=== PATIENT | female | born 1990 | race Caucasian/White ===

== ENCOUNTER 2017-05-03 20:17 | Emergency (ER) | payer MEDICAID, OTHER ==
[2017-05-03 20:57] VITALS: BP 136/94
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
--- NOTE | 2017-05-08 12:50 | CR ---
Nasal bone: Three views of the nasal bone were obtained. Lucent lines are identified within the distal cartilage of the nasal bone which are felt to be normal variant. No nasal bone fracture is identified. Visualized sinuses are clear. Impression: 1. Nothing acute is appreciated on three-view nasal bone study. Diagnostic code #1
== END 2017-05-03 22:24 | disposition home or self-care (01) ==
LOC: JD.ED 20:17
DX: S09.92XA Unspecified injury of nose, initial encounter (principal); X58.XXXA Exposure to other specified factors, initial encounter
CPT/HCPCS: 70160; 70160-26; 99283

== ENCOUNTER 2018-08-13 20:12 | Emergency (ER) | payer MEDICAID ==
[2018-08-13 20:24] VITALS: BP 136/84
--- NOTE | 2018-08-13 20:34 | EDM.PDOC ---
ED HPI GENERAL MEDICAL PROBLEM - General Chief Complaint: ENT Problem Stated Complaint: sore throat Time Seen by Provider: 08/13/18 20:23 - History of Present Illness INITIAL COMMENTS - FREE TEXT/NARRATIVE: 27-year-old female presents emergency room with sore throat. The sore throat started earlier today progressively getting worse she's not aware of any fevers or chills but she is having some difficulty eating and drinking the patient is 15 weeks and has had significant issues with hyperemesis gravidarum. She's not aware of any fevers chills. She is not achy all over does not have cough. Throat Pain Score (Numeric/FACES): 7 - Related Data Allergies Allergy/AdvReac Type Severity Reaction Status Date / Time No Known Allergies Allergy Verified 08/13/18 20:23 Home Meds: Home Meds Ondansetron [Zofran] 4 mg PO Q6H PRN 08/13/18 [History] Vits #93/Iron Fum/FA [ Formula Tablet] 1 tab PO DAILY 08/13/18 [History] Past Medical History - Past Health History Medical/Surgical History: Denies Medical/Surgical History ED ROS ENT - Review of Systems Review Of Systems: See Below Constitutional: Denies: Fever, Chills HEENT: Reports: Other (Sore throat) Respiratory: Denies: Shortness of Breath, Cough, Sputum Cardiovascular: Reports: No Symptoms Endocrine: Reports: No Symptoms GI/Abdominal: Reports: Nausea. Denies: Abdominal Pain, Constipation, Diarrhea : Reports: No Symptoms Musculoskeletal: Reports: No Symptoms Skin: Reports: No Symptoms Neurological: Reports: No Symptoms ED EXAM, ENT - Physical Exam Exam: See Below Exam Limited By: No Limitations General Appearance: Alert, No Apparent Distress Eye Exam: Bilateral Eye: Normal Inspection Ears: Normal External Exam, Normal Canal, Hearing Grossly Normal, Normal TMs Nose: Normal Inspection, Normal Mucousa Mouth/Throat: Normal Inspection, Normal Gums, Normal Lips, Other (Posterior pharynx is mildly erythematous no exudate noted) Head: Atraumatic, Normocephalic Neck: Normal Inspection, Supple, Non-Tender, Full Range of Motion. No: Lymphadenopathy (L), Lymphadenopathy (R) Respiratory/Chest: No Respiratory Distress, Lungs Clear, Normal Breath Sounds Cardiovascular: Regular Rate, Rhythm, No Edema, No Murmur GI/Abdominal: Normal Bowel Sounds, Non-Tender, No Organomegaly, No Distention, Other (Uterine fundus is consistent with dates heart tones are audible 165 bpm). No: Guarding, Rigid, Rebound, Tender Course - Vital Signs Last Recorded V/S: Last Vital Signs Temp 36.9 C 08/13/18 20:21 Pulse 106 H 08/13/18 20:21 Resp 16 08/13/18 20:21 BP 136/84 08/13/18 20:21 Pulse Ox 100 08/13/18 20:21 - Orders/Labs/Meds Orders: Active Orders 24 hr Category Date Time Status CULTURE STREP A CONFIRMATION [RM] Stat Lab 08/13/18 20:21 Results CULTURE THROAT [RM] Stat Lab 08/13/18 21:08 Ordered STREP SCRN A RAPID W CULT CONF [RM] Stat Lab 08/13/18 20:21 Results - Re-Assessments/Exams Free Text/Narrative Re-Assessment/Exam: 08/13/18 21:25 Rapid strep negative confirmatory culture pending. Influenza screen for a and B is both negative with talking or the patient sounds like there is a URI going through her household maybe she's at the early steps of this I discussed patient 's case with Dr. Pollack as the patient was wondering if she could use Tylenol Cold and flu or Robitussin he thought both of those be okay but to check with Dr. Tidwell her regular OB tomorrow Departure - Departure Time of Disposition: 21:28 Disposition: Home, Self-Care 01 Clinical Impression: Pharyngitis - Discharge Information Referrals: PCP,None [Primary Care Provider] - Forms: ED Department Discharge Additional Instructions: Return to the emergency room with any questions problems worsening symptoms. Call Dr. Tidwell tomorrow if needed. Confirmatory culture for strep throat is pending at this point. - My Orders Last 24 Hours: My Active Orders 08/13/18 20:21 CULTURE STREP A CONFIRMATION [RM] Stat STREP SCRN A RAPID W CULT CONF [RM] Stat 08/13/18 21:08 CULTURE THROAT [RM] Stat - Assessment/Plan Last 24 Hours: My Active Orders 08/13/18 20:21 CULTURE STREP A CONFIRMATION [RM] Stat STREP SCRN A RAPID W CULT CONF [RM] Stat 08/13/18 21:08 CULTURE THROAT [RM] Stat
== END 2018-08-13 21:35 | disposition home or self-care (01) ==
LOC: JD.ED 20:12
DX: O99.512 Diseases of the respiratory system complicating pregnancy, second trimester (principal); J02.9 Acute pharyngitis, unspecified; Z3A.15 15 weeks gestation of pregnancy
CPT/HCPCS: 87081; 87430; 87804; 99282; 99283

== ENCOUNTER 2018-08-29 19:08 | Emergency (ER) | payer MEDICAID ==
[2018-08-29 19:16] VITALS: BP 130/76
--- NOTE | 2018-08-29 19:44 | EDM.PDOC ---
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 She landed on her buttocks. She then developed some spotting this morning and cramping. She still has some cramps. She is at 18 weeks gestation with a LNMP of mid April. She is seeing Dr Tidwell. She has no discharge. She has some mild low back pain after the fall. She has no numbness or weakness. She did not hurt her head or neck. Onset: Sudden Duration: Day(s): (Last night) Location: Reports: Abdomen, Pelvis Quality: Reports: Other (Cramping) Severity: Mild Improves with: Reports: None Worsens with: Reports: None Associated Symptoms: Reports: No Other Symptoms Lower Abdomen Pain Score (Numeric/FACES): 4 - Related Data Allergies Allergy/AdvReac Type Severity Reaction Status Date / Time No Known Allergies Allergy Verified 08/29/18 19:16 Home Meds: Home Meds Ondansetron [Zofran] 4 mg PO Q6H PRN 08/13/18 [History] Vits #93/Iron Fum/FA [ Formula Tablet] 1 tab PO DAILY 08/13/18 [History] Past Medical History - Past Health History Medical/Surgical History: Denies Medical/Surgical History Cardiovascular History: Reports: Other (See Below) Other Cardiovascular History: aortic stenosis, pulmonary valve disorder Social & Family History - Tobacco Use Smoking Status *Q: Current Every Day Smoker Years of Tobacco use: 10 Packs/Tins Daily: 0.2 - Caffeine Use Caffeine Use: Reports: Coffee - Recreational Drug Use Recreational Drug Use: No ED ROS GENERAL - Review of Systems Review Of Systems: See Below Constitutional: Reports: No Symptoms HEENT: Reports: No Symptoms Respiratory: Reports: No Symptoms Cardiovascular: Reports: No Symptoms Endocrine: Reports: No Symptoms GI/Abdominal: Reports: Abdominal Pain. Denies: Diarrhea, Nausea, Vomiting : Reports: No Symptoms Musculoskeletal: Reports: Back Pain (Low). Denies: Neck Pain ED EXAM - Physical Exam Exam: See Below Exam Limited By: No Limitations General Appearance: Alert, No Apparent Distress Ears: Normal External Exam Nose: Normal Inspection Head: Atraumatic, Normocephalic Neck: Normal Inspection Respiratory/Chest: No Respiratory Distress, Lungs Clear, Normal Breath Sounds Cardiovascular: Regular Rate, Rhythm, No Edema, No Murmur GI/Abdominal Exam: Soft, Non-Tender, Other (Uterus felt to just below the umbilicus with no tenderness) Course - Vital Signs Last Recorded V/S: Last Vital Signs Temp 97.1 F 08/29/18 19:14 Pulse 100 08/29/18 19:14 Resp 18 08/29/18 19:14 BP 130/76 08/29/18 19:14 Pulse Ox 99 08/29/18 19:14 - Orders/Labs/Meds Orders: Active Orders 24 hr Category Date Time Status RHOGAM, [RHIG WORKUP, ] [BBK] Stat Lab 08/29/18 21:11 Ordered Labs: Laboratory Tests 08/29/18 08/29/18 08/29/18 Range/Units 19:50 19:50 19:50 WBC 8.88 (3.98-10.04) K/mm3 RBC 4.50 (3.98-5.22) M/mm3 Hgb 12.7 (11.2-15.7) gm/L Hct 38.1 (34.1-44.9) % MCV 84.7 (79.4-94.8) fl MCH 28.2 (25.6-32.2) pg MCHC 33.3 (32.2-35.5) g/dl RDW Std Deviation 42.4 (36.4-46.3) fL Plt Count 228 (182-369) K/mm3 MPV 10.1 (9.4-12.3) fl Neut % (Auto) 70.2 (34.0-71.1) % Lymph % (Auto) 19.8 (19.3-51.7) % Centre % (Auto) 7.7 (4.7-12.5) % Eos % (Auto) 1.8 (0.7-5.8) Baso % (Auto) 0.2 (0.1-1.2) % Neut # (Auto) 6.23 H (1.56-6.13) K/mm3 Lymph # (Auto) 1.76 (1.18-3.74) K/mm3 Centre # (Auto) 0.68 H (0.24-0.36) K/mm3 Eos # (Auto) 0.16 (0.04-0.36) K/mm3 Baso # (Auto) 0.02 (0.01-0.08) K/mm3 HCG, Quant 02742.0 mIU/mL Blood Type O NEGATIVE - Re-Assessments/Exams Free Text/Narrative Re-Assessment/Exam: 08/29/18 19:45 I ordered lab work and an US. 08/29/18 21:25 Her CBC looks good. Her HCG was 48,400. Her US shows single intrauterine fetus 15 weeks 6 days. No complicating process is seen by US at this time. No etiology is seen for the patient's spotting. She is O negative so I have ordered some rhogam. Departure - Departure Time of Disposition: 21:30 Disposition: Home, Self-Care 01 Condition: Good Clinical Impression: Spotting affecting in second trimester, Cramping affecting , antepartum Fall Qualifiers: Encounter type: initial encounter Qualified Code(s): W19.XXXA - Unspecified fall, initial encounter Qualifiers: Weeks of gestation: 15 weeks Qualified Code(s): Z3A.15 - 15 weeks gestation of - Discharge Information *PRESCRIPTION DRUG MONITORING PROGRAM REVIEWED*: No *COPY OF PRESCRIPTION DRUG MONITORING REPORT IN PATIENT HARSHAD: No Referrals: Jack Tidwell MD [Primary Care Provider] - 1 Week Forms: ED Department Discharge Additional Instructions: Drink plenty of fluids. Take tylenol as needed for pain. Follow up with Dr Tidwell in 1 week. Please return if you have more bleeding or cramping. - My Orders Last 24 Hours: My Active Orders 08/29/18 21:11 RHOGAM, [RHIG WORKUP, ] [BBK] Stat - Assessment/Plan Last 24 Hours: My Active Orders 08/29/18 21:11 RHOGAM, [RHIG WORKUP, ] [BBK] Stat
--- NOTE | 2018-08-29 20:55 | US ---
Limited obstetrical ultrasound: Multiple real-time images were obtained transabdominally. Comparison: Previous obstetrical ultrasound of 06/19/18 is available. Dates: Current ultrasound: [facility] 02/14/19, gestational age 15 weeks 6 days presentation: Mobile Placenta: Posterior with no findings of placenta previa or abruption Amniotic fluid: Normal in amount Measurements: BPD: 3.14 cm - 15 weeks 6 days Head circumference: 11.59 cm - 15 weeks 5 days Abdominal circumference: 9.67 cm - 15 weeks 6 days Femur length: 1.84 cm - 15 weeks 4 days Estimated weight: 130 g (0 lbs. 5 oz.), estimated weight at 26th percentile for age by current ultrasound Heart rate: 161 BPM Cervical length: 3.3 cm Impression: 1. Single intrauterine fetus. Dates as noted above. Fetus is mobile in position. 2. No complicating process is seen by ultrasound at this time. No etiology is seen for the patient's spotting. Diagnostic code #1
== END 2018-08-29 22:20 | disposition home or self-care (01) ==
LOC: JD.ED 19:08
DX: O26.852 Spotting complicating pregnancy, second trimester (principal); O99.89 Other specified diseases and conditions complicating pregnancy, childbirth and the puerperium; R10.30 Lower abdominal pain, unspecified; M54.5 Low back pain; O99.332 Smoking (tobacco) complicating pregnancy, second trimester; F17.210 Nicotine dependence, cigarettes, uncomplicated; Z3A.15 15 weeks gestation of pregnancy; W01.0XXA Fall on same level from slipping, tripping and stumbling without subsequent striking against object, initial encounter; Y99.0 Civilian activity done for income or pay
CPT/HCPCS: 36415; 76815; 84702; 85025; 86850; 86900; 86901; 99284; J2790

== ENCOUNTER 2019-04-28 09:22 | Emergency (ER) | payer MEDICAID ==
[2019-04-28 09:29] VITALS: BP 137/84; PULSE 94
[2019-04-28] MEDS ORDERED: Sodium Chloride 0.9% 10 ML Syringe FLUSH PRN (09:39)
[2019-04-28] MEDS ORDERED: Ondansetron 4 MG/2 ML SDV IVPUSH ONE (09:39)
[2019-04-28] MEDS ORDERED: Ketorolac 30 MG/ML SDV IVPUSH ONE (09:40)
--- NOTE | 2019-04-28 09:44 | EDM.PDOC ---
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 The pain radiates down to the suprapubic area. She says this started a couple days ago and it comes and goes. She has nausea but no vomiting. She has no fever, chills, cough, congestion, runny nosed, chest pain, or shortness of breath. She has no dysuria or hematuria. She had a baby a couple months ago and a tubal ligation last month. Onset: Gradual Duration: Day(s): Location: Reports: Abdomen Quality: Reports: Sharp Severity: Moderate Improves with: Reports: None Worsens with: Reports: None Associated Symptoms: Reports: Nausea/Vomiting. 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: , Other (See Below) Other MOTOR REBUILDER History: tubes tied Psychiatric History: Reports: Depression - Infectious Disease History Infectious Disease History: Reports: MRSA Other Infectious Disease History: mrsa history 10 years ago-boils in armpits Social & Family History - Family History Family Medical History: Noncontributory - Tobacco Use Smoking Status *Q: Current Every Day Smoker Years of Tobacco use: 11 Packs/Tins Daily: 0.5 - Caffeine Use Caffeine Use: Reports: None - Recreational Drug Use Recreational Drug Use: No ED ROS GENERAL - Review of Systems Review Of Systems: See Below Constitutional: Reports: No Symptoms HEENT: Reports: No Symptoms Respiratory: Reports: No Symptoms Cardiovascular: Reports: No Symptoms Endocrine: Reports: No Symptoms GI/Abdominal: Reports: Abdominal Pain, Nausea. Denies: Diarrhea, Vomiting : Reports: No Symptoms Musculoskeletal: Reports: No Symptoms Skin: Reports: No Symptoms ED EXAM, GI/ABD - Physical Exam Exam: See Below Exam Limited By: No Limitations General Appearance: Alert, No Apparent Distress Ears: Normal External Exam Nose: Normal Inspection Head: Atraumatic, Normocephalic Neck: Normal Inspection Respiratory/Chest: No Respiratory Distress, Lungs Clear, Normal Breath Sounds Cardiovascular: Regular Rate, Rhythm, No Edema, No Murmur GI/Abdominal Exam: Soft, No Organomegaly, No Mass, Tender (Moderate tenderness to the left lower abdomen) Extremities: Normal Inspection Course - Vital Signs Last Recorded V/S: Last Vital Signs Temp 97.5 F 04/28/19 09:28 Pulse 94 04/28/19 09:28 Resp 15 04/28/19 09:28 BP 137/84 04/28/19 09:28 Pulse Ox 98 04/28/19 09:28 - Orders/Labs/Meds Orders: Active Orders 24 hr Category Date Time Status Peripheral IV Care [RC] . DIRECTED Care 04/28/19 09:40 Active CBC WITH AUTO DIFF [HEME] Stat Lab 04/28/19 10:00 Results Sodium Chloride 0.9% [Normal Saline] 1,000 ml Med 04/28/19 09:45 Active IV ASDIRECTED Sodium Chloride 0.9% [Saline Flush] Med 04/28/19 09:39 Active 10 ml FLUSH ASDIRECTED PRN ED Antiemetic Medication Reflex [OM.PC] Stat Oth 04/28/19 09:39 Ordered Peripheral IV Insertion Adult [OM.PC] Stat Oth 04/28/19 09:39 Ordered Medication Orders Sodium Chloride (Normal Saline) 1,000 mls @ 125 mls/hr IV ASDIRECTED GABBY Last Admin: 04/28/19 10:04 Dose: 125 mls/hr Sodium Chloride (Saline Flush) 10 ml FLUSH ASDIRECTED PRN PRN Reason: Keep Vein Open Last Admin: 04/28/19 10:05 Dose: 10 ml Labs: Laboratory Tests 04/28/19 04/28/19 04/28/19 Range/Units 10:00 10:00 10:00 WBC 4.67 (3.98-10.04) K/mm3 RBC 4.79 (3.98-5.22) M/mm3 Hgb 10.9 L (11.2-15.7) gm/dl Hct 35.9 (34.1-44.9) % MCV 74.9 L D (79.4-94.8) fl MCH 22.8 L (25.6-32.2) pg MCHC 30.4 L (32.2-35.5) g/dl RDW Std Deviation 39.0 (36.4-46.3) fL Plt Count 259 D (182-369) K/mm3 MPV 10.4 (9.4-12.3) fl Neut % (Auto) 54.9 (34.0-71.1) % Lymph % (Auto) 32.1 (19.3-51.7) % [place] % (Auto) 7.5 (4.7-12.5) % Eos % (Auto) 4.9 (0.7-5.8) Baso % (Auto) 0.6 (0.1-1.2) % Neut # (Auto) 2.56 (1.56-6.13) K/mm3 Lymph # (Auto) 1.50 (1.18-3.74) K/mm3 [place] # (Auto) 0.35 (0.24-0.36) K/mm3 Eos # (Auto) 0.23 (0.04-0.36) K/mm3 Baso # (Auto) 0.03 (0.01-0.08) K/mm3 Sodium 139 (136-145) mEq/L Potassium 3.8 (3.5-5.1) mEq/L Chloride 106 (98-107) mEq/L Carbon Dioxide 26 (21-32) mEq/L Anion Gap 10.8 (5-15) BUN 11 (7-18) mg/dL Creatinine 0.9 (0.55-1.02) mg/dL Est Cr Clr Drug Dosing 80.36 mL/min Estimated GFR (MDRD) > 60 (>60) mL/min BUN/Creatinine Ratio 12.2 L (14-18) Glucose 88 (74-106) mg/dL Calcium 9.1 (8.5-10.1) mg/dL Total Bilirubin 0.3 (0.2-1.0) mg/dL AST 12 L (15-37) U/L ALT 33 (14-59) U/L Alkaline Phosphatase 85 (46-116) U/L Total Protein 7.0 (6.4-8.2) g/dl Albumin 3.8 (3.4-5.0) g/dl Globulin 3.2 gm/dL Albumin/Globulin Ratio 1.2 (1-2) Lipase 60 L (73-393) U/L HCG, Qual Negative (NEGATIVE) Urine Color (Yellow) Urine Appearance (Clear) Urine pH (5.0-8.0) Ur Specific [place] (1.005-1.030) Urine Protein (Negative) Urine Glucose (UA) (Negative) Urine Ketones (Negative) Urine Occult Blood (Negative) Urine Nitrite (Negative) Urine Bilirubin (Negative) Urine Urobilinogen (0.2-1.0) Ur Leukocyte Esterase (Negative) Urine RBC (0-5) /hpf Urine WBC (0-5) /hpf Ur Epithelial Cells (0-5) /hpf Urine Bacteria (FEW) /hpf Urine Mucus (FEW) /hpf 04/28/19 Range/Units 11:05 WBC (3.98-10.04) K/mm3 RBC (3.98-5.22) M/mm3 Hgb (11.2-15.7) gm/dl Hct (34.1-44.9) % MCV (79.4-94.8) fl MCH (25.6-32.2) pg MCHC (32.2-35.5) g/dl RDW Std Deviation (36.4-46.3) fL Plt Count (182-369) K/mm3 MPV (9.4-12.3) fl Neut % (Auto) (34.0-71.1) % Lymph % (Auto) (19.3-51.7) % [place] % (Auto) (4.7-12.5) % Eos % (Auto) (0.7-5.8) Baso % (Auto) (0.1-1.2) % Neut # (Auto) (1.56-6.13) K/mm3 Lymph # (Auto) (1.18-3.74) K/mm3 [place] # (Auto) (0.24-0.36) K/mm3 Eos # (Auto) (0.04-0.36) K/mm3 Baso # (Auto) (0.01-0.08) K/mm3 Sodium (136-145) mEq/L Potassium (3.5-5.1) mEq/L Chloride (98-107) mEq/L Carbon Dioxide (21-32) mEq/L Anion Gap (5-15) BUN (7-18) mg/dL Creatinine (0.55-1.02) mg/dL Est Cr Clr Drug Dosing mL/min Estimated GFR (MDRD) (>60) mL/min BUN/Creatinine Ratio (14-18) Glucose (74-106) mg/dL Calcium (8.5-10.1) mg/dL Total Bilirubin (0.2-1.0) mg/dL AST (15-37) U/L ALT (14-59) U/L Alkaline Phosphatase (46-116) U/L Total Protein (6.4-8.2) g/dl Albumin (3.4-5.0) g/dl Globulin gm/dL Albumin/Globulin Ratio (1-2) Lipase (73-393) U/L HCG, Qual (NEGATIVE) Urine Color Yellow (Yellow) Urine Appearance Clear (Clear) Urine pH 5.5 (5.0-8.0) Ur Specific [place] 1.020 (1.005-1.030) Urine Protein Negative (Negative) Urine Glucose (UA) Negative (Negative) Urine Ketones Negative (Negative) Urine Occult Blood Negative (Negative) Urine Nitrite Negative (Negative) Urine Bilirubin Negative (Negative) Urine Urobilinogen 0.2 (0.2-1.0) Ur Leukocyte Esterase Negative (Negative) Urine RBC 0-5 (0-5) /hpf Urine WBC 0-5 (0-5) /hpf Ur Epithelial Cells 10-20 H (0-5) /hpf Urine Bacteria Few (FEW) /hpf Urine Mucus Not seen (FEW) /hpf Meds: Medications Generic Name Dose Route Start Last Admin Trade Name Freq PRN Reason Stop Dose Admin Sodium Chloride 1,000 mls @ 125 mls/hr 04/28/19 09:45 04/28/19 10:04 Normal Saline IV 125 mls/hr ASDIRECTED GABBY Administration Sodium Chloride 10 ml 04/28/19 09:39 04/28/19 10:05 Saline Flush FLUSH 10 ml ASDIRECTED PRN Administration Keep Vein Open Discontinued Medications Generic Name Dose Route Start Last Admin Trade Name Freq PRN Reason Stop Dose Admin Ketorolac Tromethamine 30 mg 04/28/19 09:40 04/28/19 10:04 Toradol IVPUSH 04/28/19 09:41 30 mg ONETIME ONE Administration Ondansetron HCl 4 mg 04/28/19 09:39 04/28/19 10:04 Zofran IVPUSH 04/28/19 09:40 4 mg ONETIME ONE Administration - Re-Assessments/Exams Free Text/Narrative Re-Assessment/Exam: 04/28/19 09:44 I ordered an IV NS 125ml/hr, zofran 4mg IV, toradol 30mg IV, labs, UA and a CT of her abdomen and pelvis with IV and oral contrast. 04/28/19 11:57 Her CBC and CMP look good. Her Hcg is negative. Her lipase is low at 60. Her UA shows no UTI. Her CT shows no renal calculi, ureteral dilatation or ureteral stone is seen. Minimal increased stool within the colon. No acute abnormality is appreciated on noncontrast CT study of the abdomen and pelvis. She feels better. I will have her take some magnesium citrate to help her clean out. Departure - Departure Time of Disposition: 12:00 Disposition: Home, Self-Care 01 Condition: Good Clinical Impression: Abdominal pain Qualifiers: Abdominal location: left lower quadrant Qualified Code(s): R10.32 - Left lower quadrant pain - Discharge Information *PRESCRIPTION DRUG MONITORING PROGRAM REVIEWED*: No *COPY OF PRESCRIPTION DRUG MONITORING REPORT IN PATIENT HARSHAD: No Referrals: PCP,None [Primary Care Provider] - Komal Jimenez PA-C [Physician Backpackers Manager] - 1 Week Forms: ED Department Discharge Additional Instructions: Drink plenty of fluids. Take the zofran as needed for nausea and vomiting. Take milk of magnesia 1/2 bottle every 6 hours until you have a bowel movement to help you clean out. Please return if you are worse. - My Orders Last 24 Hours: My Active Orders 04/28/19 09:39 Sodium Chloride 0.9% [Saline Flush] 10 ml FLUSH ASDIRECTED PRN ED Antiemetic Medication Reflex [OM.PC] Stat Peripheral IV Insertion Adult [OM.PC] Stat 04/28/19 09:40 Peripheral IV Care [RC] . DIRECTED 04/28/19 09:45 Sodium Chloride 0.9% [Normal Saline] 1,000 ml IV ASDIRECTED 04/28/19 10:00 CBC WITH AUTO DIFF [HEME] Stat - Assessment/Plan Last 24 Hours: My Active Orders 04/28/19 09:39 Sodium Chloride 0.9% [Saline Flush] 10 ml FLUSH ASDIRECTED PRN ED Antiemetic Medication Reflex [OM.PC] Stat Peripheral IV Insertion Adult [OM.PC] Stat 04/28/19 09:40 Peripheral IV Care [RC] . DIRECTED 04/28/19 09:45 Sodium Chloride 0.9% [Normal Saline] 1,000 ml IV ASDIRECTED 04/28/19 10:00 CBC WITH AUTO DIFF [HEME] Stat
[2019-04-28] MEDS ORDERED: Sodium Chloride 0.9% 1,000 ML IV SCH (09:45)
--- NOTE | 2019-04-28 11:45 | CT ---
CT abdomen and pelvis Technique: Multiple axial sections were obtained above the dome of the diaphragm inferiorly through the pubic symphysis. Intravenous and oral contrast was not utilized. Study has been performed as a ureteral stone protocol. Comparison: No prior abdominal imaging is available. Findings: Kidneys show no abnormal calcifications. No ureteral dilatation or ureteral stone is seen. Visualized lung bases show nothing acute. Noncontrast appearance of the liver appears within normal limits. Spleen appears within normal limits. Adrenal glands show no nodule. Pancreas is within normal limits. Aorta shows no aneurysm. No retroperitoneal adenopathy is seen. Appendix is seen which is normal. No pelvic mass or adenopathy is seen. No free fluid or inflammatory change is appreciated. Minimal increased stool is noted within the colon. Bone window settings were reviewed which appear within normal limits for the patient's age. Impression: 1. No renal calculi, ureteral dilatation or ureteral stone is seen. 2. Minimal increased stool within the colon. 3. No acute abnormality is appreciated on noncontrast CT study of the abdomen and pelvis. Diagnostic code #2
== END 2019-04-28 12:16 | disposition home or self-care (01) ==
LOC: JD.ED 09:22
DX: R10.32 Left lower quadrant pain (principal); F17.210 Nicotine dependence, cigarettes, uncomplicated; Z91.040 Latex allergy status
CPT/HCPCS: 36415; 74176; 80053; 81001; 83690; 84703; 85025; 96361; 96374; 96375; 99284; J1885; J2405; J7040

== ENCOUNTER 2020-01-15 15:33 | Emergency (ER) | payer OTHER, MEDICAID ==
[2020-01-15 16:00] VITALS: BP 129/73; PULSE 116
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
--- NOTE | 2020-01-15 16:30 | CR ---
Left hand: 4 views of the left hand were obtained. Comparison: No previous hand study. Joint spaces are preserved. No acute fracture, dislocation or other bony abnormality is appreciated. Impression: 1. No abnormality is identified on left hand exam. Diagnostic code #1 This report was dictated in MDT
== END 2020-01-15 16:44 | disposition home or self-care (01) ==
LOC: JD.ED 15:33
DX: S60.222A Contusion of left hand, initial encounter (principal); Z91.040 Latex allergy status; F17.210 Nicotine dependence, cigarettes, uncomplicated; V43.53XA Car driver injured in collision with pick-up truck in traffic accident, initial encounter
CPT/HCPCS: 73130-26-LT; 73130-LT; 99282; 99283-25

== ENCOUNTER 2025-04-15 18:32 | Emergency (ER) | payer MEDICAID ==
[2025-04-15 18:55] VITALS: BP 140/87; PULSE 74
[2025-04-15] MEDS ORDERED: Sodium Chloride 0.9% 10 ML Syringe FLUSH PRN (18:57)
[2025-04-15 19:28] LABS: BASOPHILS ABSOLUTE AUTO 0.1 K/mm3 (0.0-0.2); BASOPHILS PERCENT AUTO 1.1 % (0.0-1.0); EOSINOPHILS ABSOLUTE AUTO 0.3 K/mm3 (0.0-0.4); EOSINOPHILS PERCENT AUTO 5.8 % (0.0-6.0); IMMATURE GRAN ABSOLUTE AUTO 0.02 K/mm3 (0.00-0.05); IMMATURE GRAN PERCENT AUTO 0.4 % (0.0-0.4); LYMPHOCYTES ABSOLUTE AUTO 1.6 K/mm3 (1.0-4.8); LYMPHOCYTES PERCENT AUTO 29.2 % (24.0-44.0); MEAN PLATELET VOLUME 10.6 fl (9.4-12.3); MONOCYTES ABSOLUTE AUTO 0.4 K/mm3 (0.0-0.8); MONOCYTES PERCENT AUTO 8.0 % (0.0-8.0); NEUTROPHILS ABSOLUTE AUTO 3.1 K/mm3 (1.8-7.7); NEUTROPHILS PERCENT AUTO 55.5 % (41.0-71.0); NRBC ABSOLUTE 0.00 (0.00-0.02); NRBC PERCENT 0.0 % (0.0-0.2); PLATELET COUNT,PLT 193 K/mm3 (150-400); RED BLOOD CELL COUNT 5.25 M/mm3 (4.10-5.30); WHITE BLOOD CELL COUNT,WBC 5.52 K/mm3 (3.9-11.3)
[2025-04-15 19:55] LABS: A/G RATIO 1.2 (1-2); ALANINE AMINOTRANSFERASE,ALT 22.0 U/L (14-59); ASPARTATE AMNIOTRANSFERASE,AST 21.0 U/L (15-37); BILIRUBIN TOTAL 0.3 mg/dL (0.2-1.0); BLOOD UREA NITROGEN,BUN 14.0 mg/dL (7-18); CARBON DIOXIDE,CO2 27.0 mEq/L (21-32); CHLORIDE,CL 105.0 mEq/L (98-107); CREATININE 0.9 mg/dL (0.55-1.02); EST CRCL DRUG DOSING (CG) 76.06 mL/min; ESTIMATED GFR 86.0 mL/min (>60); PROTEIN TOTAL,TP 7.3 g/dl (6.4-8.2); SODIUM,NA 140.0 mEq/L (136-145)
[2025-04-15 20:17] LABS: GLUCOSE RANDOM 83.0 mg/dL (70-99); POTASSIUM,K 3.7 mEq/L (3.5-5.1)
[2025-04-15] MEDS: Iopamidol 612 MG/ML 100 ML Bottle IVPUSH ONE (21:09)
[2025-04-15 23:38] LABS: APPEARANCE,URINE CLEAR (Clear); GLUCOSE,URINE NEGATIVE (Negative); OCCULT BLOOD,URINE NEGATIVE (Negative)
== END 2025-04-15 23:30 | disposition home or self-care (01) ==
LOC: JD.ED 18:32
DX: K59.00 Constipation, unspecified (principal); Z79.899 Other long term (current) drug therapy; Z91.040 Latex allergy status
CPT/HCPCS: 36415; 74177; 80053; 81003; 83690; 84703; 85025; 86140; 99284; J7030; Q9967